=== PATIENT | female | born 1965 | race Two or more races ===

== ENCOUNTER 2024-09-01 15:46 | Emergency (ER) | payer OTHER ==
[~2024-09-01] VITALS: Ht 149.9 cm; Wt 68.0 kg
[~2024-09-01 15:46] MED LIST: ANAPROX275 MG
[2024-09-01] MEDS ORDERED: METHYLPREDNISOLONE SOD SUCC 125 MG VIAL IM STA (16:28)
[2024-09-01] MEDS ORDERED: DIPHENHYDRAMINE HCL 50 MG CAPSULE PO STA (16:28)
== END 2024-09-01 16:50 | disposition home or self-care (01) ==
LOC: ER 15:47
DX: L50.8 Other urticaria (principal)

== ENCOUNTER 2024-12-21 15:21 | Emergency (ER) | payer OTHER ==
[~2024-12-21] VITALS: Ht 149.9 cm; Wt 67.1 kg
[2024-12-21] MEDS ORDERED: 0.9 % SODIUM CHLORIDE 1,000 ML IV SCH (16:30)
[2024-12-21] MEDS ORDERED: KETOROLAC TROMETHAMINE 30 MG VIAL IV ONE (16:30)
[2024-12-21] MEDS ORDERED: KETOROLAC TROMETHAMINE 30 MG VIAL ONE ×2 (16:38→18:04)
[2024-12-21 18:04] LABS: PH,URINE 5.5 (5.0-8.0); URINE APPEARANCE Clear; URINE BILIRRUBIN Negative (NEGATIVE); URINE BLOOD Negative; URINE COLOR Yellow; URINE GLUCOSE Negative (NEGATIVE); URINE KETONE Negative (NEGATIVE); URINE LEUKOCYTE Trace; URINE NITRATE Negative; URINE PROTEIN Negative (NEGATIVE); URINE UROBILINOGEN 0.2 E.U./dl
[2024-12-21 18:05] LABS: URINE BACTERIA 504.1 uL (0.0-1933); URINE CAST 0.14 uL (0.0-1.40); URINE EPITHELIAL CELLS 17.2 uL (0.0-38.8); URINE RBC 1.7 uL (0.0-20.8); URINE WBC 36.8 uL (0.0-23.2)
[2024-12-21 18:28] LABS: HEMATOCRIT 42.5 % (36.0-45.00); HEMOGLOBIN 14.6 g/dL (12.0-15.00); MEAN CELL VOLUME 91.9 fL (80.00-100.00); MEAN CORPUSCULAR HEMOGLOBIN 31.7 pg (27.00-32.0); MEAN CORPUSCULAR HGB CONC 34.4 g/dl (32.0-36.0); PLATELET COUNT 266 K/uL (150-450); RED BLOOD COUNT 4.62 M/uL (4.00-6.00)
[2024-12-21 19:04] LABS: ALBUMIN 4.2 gm/dL (3.4-5.0); BILIRUBIN TOTAL 0.68 mg/dL (0.3-1.2); CALCIUM 9.6 mg/dL (8.5-10.1); CREATININE SERUM 0.75 mg/dL (0.55-1.02); GFR 79.65; GLOBULINA 4.3 G/DL (2.4-3.5); POTASSIUM 3.51 mEq/L (3.5-5.1); TOTAL PROTEIN 8.5 gm/dL (6.4-8.2)
[2024-12-21] MEDS ORDERED: DICLOFENAC SODI75 MG PO (19:37)
[2024-12-21] MEDS ORDERED: NORFLEX100MG PO (19:38)
== END 2024-12-21 20:25 | disposition home or self-care (01) ==
LOC: ER 15:23
PROVIDERS: General Practice
DX: R10.32 Left lower quadrant pain (principal); K59.01 Slow transit constipation

== ENCOUNTER 2025-02-19 12:30 | Inpatient (IN) | payer OTHER ==
[~2025-02-19] VITALS: Ht 30.5 cm; Wt 64.9 kg
[~2025-02-19 12:30] MED LIST changes: +DICLOFENAC SODI75 MG PO; +NORFLEX100MG PO
[2025-02-27] MEDS ORDERED: BUPIVACAINE HCL/MPF 0.5% 30ML VIAL ONE (08:17)
[2025-02-27] MEDS ORDERED: LIDOCAINE HCL 1%/EPINEPHRINE 20ML VIAL IJ ONE (08:18)
[2025-02-27] MEDS ORDERED: CEFTRIAXONE SODIUM 2,000 MG VIAL ONE (08:18)
[2025-02-27] MEDS ORDERED: METRONIDAZOLE/SODIUM CHLORIDE 500 MG/100 ML PIGGYBACK IV ONE (08:18)
[2025-02-27] MEDS ORDERED: MORPHINE SULFATE 4 MG/ML CARTRIDGE IV PRN (12:00)
[2025-02-27] MEDS ORDERED: OxyCODONE HCL 5 MG TABLET (ROXICODONE) PO PRN (12:00)
[2025-02-27] MEDS ORDERED: RINGERS SOLUTION,LACTATED 1,000 ML IV SCH (12:00)
[2025-02-27] MEDS ORDERED: ONDANSETRON HCL 2 MG/ML VIAL IV PRN (12:00)
[2025-02-27] MEDS ORDERED: HYOSCYAMINE SULFATE 0.125 MG TAB.SUBL SL SCH (13:00)
[2025-02-27] MEDS ORDERED: SIMETHICONE 125 MG CAPSULE PO SCH (13:00)
[2025-02-27] MEDS ORDERED: ACETAMINOPHEN 500 MG GEL..CAP PO SCH (14:00)
[2025-02-27 14:39] VITALS: BP 128/76; O2SAT 96
[2025-02-27 15:44] LABS: HEMATOCRIT 38.2 % (36.0-45.00); HEMOGLOBIN 12.7 g/dL (12.0-15.00); MEAN CELL VOLUME 91.2 fL (80.00-100.00); MEAN CORPUSCULAR HEMOGLOBIN 30.4 pg (27.00-32.0); MEAN CORPUSCULAR HGB CONC 33.4 g/dl (32.0-36.0); PLATELET COUNT 218 K/uL (150-450); RED BLOOD COUNT 4.19 M/uL (4.00-6.00); RED CELL DISTRIBUTION WIDTH 14.3 % (11.5-14.5)
[2025-02-27 16:00] VITALS: BP 129/76; O2SAT 98
[2025-02-27] MEDS ORDERED: POLYETHYLENE GLYCOL 3350 17 GM BLIST.PACK PO SCH (17:00)
[2025-02-27] MEDS ORDERED: CELECOXIB 200 MG CAPSULE PO SCH (17:00)
[2025-02-27] MEDS ORDERED: GABAPENTIN 300 MG CAPSULE PO SCH (17:00)
[2025-02-27] MEDS ORDERED: METOCLOPRAMIDE HCL 5 MG/ML VIAL IV SCH (17:00)
[2025-02-27] MEDS ORDERED: FAMOTIDINE/PF 20 MG/2 ML VIAL IV PUSH SCH (21:00)
[2025-02-28 01:46] VITALS: BP 114/72; O2SAT 99
[2025-02-28 06:04] LABS: ALBUMIN 2.9 gm/dL (3.4-5.0); CREATININE SERUM 0.57 mg/dL (0.55-1.02); GFR 109.32; MAGNESIUM 1.5 mg/dL (1.8-2.4); PHOSPHOROUS 3.7 mg/dL (2.5-4.9); POTASSIUM 3.85 mEq/L (3.5-5.1)
[2025-02-28 06:22] LABS: MEAN CELL VOLUME 92.3 fL (80.00-100.00); MEAN CORPUSCULAR HEMOGLOBIN 31.7 pg (27.00-32.0); MEAN CORPUSCULAR HGB CONC 34.3 g/dl (32.0-36.0); PLATELET COUNT 200 K/uL (150-450); RED BLOOD COUNT 3.79 M/uL (4.00-6.00); RED CELL DISTRIBUTION WIDTH 13.8 % (11.5-14.5)
[2025-02-28 08:00] VITALS: BP 112/70; O2SAT 95
[2025-02-28] MEDS ORDERED: LACTULOSE 20 G/30 ML BLIST.PACK PO SCH (09:00)
[2025-02-28] MEDS ORDERED: LACTOBACILLUS ACIDOPHILUS 1 CAP CAP PO SCH (09:00)
[2025-02-28] MEDS ORDERED: MAGNESIUM SULFATE IN WATER 50 ML IV NR (14:00)
[2025-02-28] MEDS ORDERED: ENOXAPARIN SODIUM 40 MG/0.4 ML SYRINGE SUBCUTANEO SCH (17:00)
[2025-02-28 18:02] VITALS: BP 132/83; O2SAT 95
[2025-03-01] VITALS: BP 123/81; O2SAT 95
[2025-03-01 06:40] LABS: HEMATOCRIT 32.7 % (36.0-45.00); HEMOGLOBIN 11.2 g/dL (12.0-15.00); MEAN CELL VOLUME 91.6 fL (80.00-100.00); MEAN CORPUSCULAR HEMOGLOBIN 31.3 pg (27.00-32.0); MEAN CORPUSCULAR HGB CONC 34.2 g/dl (32.0-36.0); PLATELET COUNT 180 K/uL (150-450); RED BLOOD COUNT 3.56 M/uL (4.00-6.00)
[2025-03-01 07:13] LABS: CALCIUM 7.9 mg/dL (8.5-10.1); CREATININE SERUM 0.5 mg/dL (0.55-1.02); GFR 127.17; MAGNESIUM 1.9 mg/dL (1.8-2.4); PHOSPHOROUS 2.1 mg/dL (2.5-4.9); POTASSIUM 3.45 mEq/L (3.5-5.1)
[2025-03-01] MEDS ORDERED: POTASSIUM PHOS,M-BASIC-D-BASIC 3 MM/ML VIAL IV NR (08:45)
[2025-03-01] MEDS ORDERED: POTASSIUM CHLORIDE 20MEQ/100ML H2O PB IV NR (08:45)
[2025-03-01] MEDS ORDERED: ENOXAPARIN SODIUM 40 MG/0.4 ML SYRINGE SUBCUTANEO SCH (09:00)
[2025-03-01 09:08] VITALS: BP 127/82; O2SAT 97
[2025-03-01] MEDS ORDERED: NAPH,MB-DB/K PH,MBDB 1 PKT PACKET PO NR (10:15)
[2025-03-01] MEDS ORDERED: POTASSIUM CHLORIDE 8 MEQ TABLET PO NR (10:15)
== END 2025-03-01 11:39 | disposition home or self-care (01) | DRG 330 ==
LOC: SURH 02-27 05:26 → O/R 02-27 05:26 → OB/GYN 02-27 12:30 → SURH 02-27 12:59 → OB/GYN 02-27 20:00 → SURH 03-01 11:39
PROVIDERS: Internal Medicine Geriatric Medicine; ADMIT Colon & Rectal Surgery; ATTEND Colon & Rectal Surgery
PROC: 0DTP4ZZ Resection of Rectum, Percutaneous Endoscopic Approach (ICD-10-PCS; 2025-02-27)
PROC: 07BB4ZZ Excision of Mesenteric Lymphatic, Percutaneous Endoscopic Approach (ICD-10-PCS; 2025-02-27)
PROC: 07BC4ZZ Excision of Pelvis Lymphatic, Percutaneous Endoscopic Approach (ICD-10-PCS; 2025-02-27)
PROC: 0WBH4ZZ Excision of Retroperitoneum, Percutaneous Endoscopic Approach (ICD-10-PCS; 2025-02-27)
PROC: 0DJD8ZZ Inspection of Lower Intestinal Tract, Via Natural or Artificial Opening Endoscopic (ICD-10-PCS; 2025-02-27)
PROC: 0DB84ZZ Excision of Small Intestine, Percutaneous Endoscopic Approach (ICD-10-PCS; principal; 2025-02-27 20:00)
DX: C20 Malignant neoplasm of rectum (principal); K92.1 Melena; K59.09 Other constipation; R59.0 Localized enlarged lymph nodes

== ENCOUNTER 2025-03-09 20:14 | Inpatient (IN) | payer OTHER ==
[~2025-03-09] VITALS: Ht 149.9 cm; Wt 0.5 kg
--- NOTE | 2025-03-09 20:47 | NUR ---
SE RECIBE PTE ALERTA, ORIENTADA X3. PTE REFIERE DOLOR ABDOMINAL. PTE REFIERE OPERADA POR EL 7 DE MASSEY. PTE REFIERE NAUSEAS. SE MIDEN S/V Y SE UBICA.
[2025-03-09] MEDS ORDERED: 0.9 % SODIUM CHLORIDE 1,000 ML IV ONE (21:15)
[2025-03-09] MEDS ORDERED: MORPHINE SULFATE 4 MG/ML VIAL IV ONE (21:15)
[2025-03-09] MEDS ORDERED: METHYLPREDNISOLONE SOD SUCC 40 MG VIAL IV ONE (21:15)
[2025-03-09] MEDS ORDERED: FAMOtidine 10 MG/ML (4ML VIAL) IV ONE (21:15)
[2025-03-09] MEDS ORDERED: DIPHENHYDRAMINE HCL 50 MG/ML VIAL 1ML IV ONE (21:15)
[2025-03-09 21:30] LABS: BASO % 0.4 % (0.1-1.2); EOS # 0.37 (0.04-0.54); EOS % 3.6 % (0.7-7.0); HEMATOCRIT 42.7 % (34.1-44.9); HEMOGLOBIN 14.3 g/dL (11.2-15.7); LYMPH % 17.6 % (19.3-53.1); MEAN CORPUSCULAR HEMOGLOBIN 29.8 pg (25.6-32.2); MONO # 0.61 (0.24-0.82); NEUT % 72.2 % (34.0-71.1); PLATELET COUNT 479 K/uL (163-369); RED CELL DISTRIBUTION WIDTH 13.3 % (11.6-14.4)
--- NOTE | 2025-03-09 21:30 | NUR ---
SE ORIENTA PTE SOBRE TX MEDICO Y REFIERE ACEPTAR. SE EJECUTAN ORDENES MEDICAS A LEONARD TOTALIDAD.
[2025-03-09 21:56] LABS: ALBUMIN 3.9 gm/dL (3.4-5.0); BILIRUBIN TOTAL 0.43 mg/dL (0.3-1.2); CALCIUM 9.8 mg/dL (8.5-10.1); CREATININE SERUM 0.74 mg/dL (0.55-1.02); GFR 80.89; POTASSIUM 4.6 mEq/L (3.5-5.1); TOTAL PROTEIN 8.9 gm/dL (6.4-8.2)
[2025-03-09 22:12] LABS: INR 1.1; PARTIAL THROMBOPLASTIN TIME 27.6 SECONDS (22.0-34.0); PROTHROMBIN TIME 11.9 SECONDS (9.0-11.5)
[2025-03-10 00:04] LABS: URINE APPEARANCE Clear; URINE BILIRRUBIN Negative (NEGATIVE); URINE BLOOD Negative; URINE COLOR Yellow; URINE GLUCOSE Negative (NEGATIVE); URINE KETONE Negative (NEGATIVE); URINE LEUKOCYTE Small; URINE NITRATE Negative; URINE PROTEIN Negative (NEGATIVE); URINE UROBILINOGEN 0.2 E.U./dl
[2025-03-10 00:08] LABS: URINE BACTERIA 107.6 uL (0.0-1933); URINE EPITHELIAL CELLS 9.6 uL (0.0-38.8); URINE RBC 2.9 uL (0.0-20.8); URINE WBC 42.2 uL (0.0-23.2)
[2025-03-10] MEDS ORDERED: TRAMADOL HCL 50 MG TABLET PO STA (03:33)
[2025-03-10] MEDS ORDERED: PIPERACILLIN/TAZOBACTAM SODIUM 3.375 GM VIAL IV STA (03:43)
[2025-03-10] MEDS ORDERED: FAMOtidine 10 MG/ML (4ML VIAL) IV PUSH STA (05:22)
[2025-03-10] MEDS ORDERED: ONDANSETRON HCL 2 MG/ML VIAL IV STA (05:22)
--- NOTE | 2025-03-10 08:20 | NUR ---
SE LE INSERTA TUBO NASOGASTRICO A PTE POR FOSA NASAL DERECHA. SE MANTIENE BAJO OBSERVACION Y EN ESPERA DE ADMICION.
[2025-03-10] MEDS ORDERED: MORPHINE SULFATE 4 MG/ML VIAL IV PRN (09:00)
[2025-03-10] MEDS ORDERED: ACETAMINOPHEN 500 MG GEL..CAP PO PRN (09:00)
[2025-03-10] MEDS ORDERED: FAMOTIDINE/PF 20 MG/2 ML VIAL IV SCH (09:00)
[2025-03-10] MEDS ORDERED: ENOXAPARIN SODIUM 40 MG/0.4 ML SYRINGE SUBCUTANEO SCH (09:00)
[2025-03-10] MEDS ORDERED: 0.9 % SODIUM CHLORIDE 1,000 ML IV SCH (09:00)
[2025-03-10] MEDS ORDERED: DEXTROSE 50 % IN WATER 0.5 G/ML VIAL IV PRN (09:00)
[2025-03-10] MEDS ORDERED: INSULIN LISPRO 1,000 UNIT/10 ML UNITS SUBCUTANEO PRN (09:00)
[2025-03-10] MEDS ORDERED: ONDANSETRON HCL 2 MG/ML VIAL IV PRN (09:45)
[2025-03-10 10:03] VITALS: BP 120/82; O2SAT 95
[2025-03-10 10:27] LABS: ALBUMIN 3.8 gm/dL (3.4-5.0); BILIRUBIN TOTAL 0.45 mg/dL (0.3-1.2); CALCIUM 9.2 mg/dL (8.5-10.1); CREATININE SERUM 0.86 mg/dL (0.55-1.02); GFR 68.01; GLOBULINA 4.8 G/DL (2.4-3.5); POTASSIUM 3.96 mEq/L (3.5-5.1); TOTAL PROTEIN 8.6 gm/dL (6.4-8.2)
[2025-03-10 16:00] VITALS: BP 102/68; O2SAT 98
[2025-03-10] MEDS ORDERED: AA 4.25%/CAL/LYTES/DEXT 5% 1,000 ML PERIFERAL SCH (17:00)
[2025-03-10] MEDS ORDERED: ACETAMINOPHEN 160MG/5 ML BLIST.PACK PO PRN (20:00)
[2025-03-11 01:55] VITALS: BP 129/79; O2SAT 96
[2025-03-11] MEDS ORDERED: ACETAMINOPHEN 160 MG/5 ML ML PO PRN (07:00)
[2025-03-11 07:09] LABS: BASO % 0.5 % (0.1-1.2); EOS # 0.15 (0.04-0.54); EOS % 1.3 % (0.7-7.0); HEMATOCRIT 38.2 % (34.1-44.9); HEMOGLOBIN 12.6 g/dL (11.2-15.7); LYMPH # 3.23 (1.18-3.74); LYMPH % 28.5 % (19.3-53.1); MEAN CORPUSCULAR HEMOGLOBIN 30.2 pg (25.6-32.2); MONO # 0.77 (0.24-0.82); MONO % 6.8 % (4.7-12.5); NEUT # 7.11 (1.56-6.13); NEUT % 62.6 % (34.0-71.1); PLATELET COUNT 424 K/uL (163-369); RED BLOOD COUNT 4.17 M/uL (3.93-5.22); RED CELL DISTRIBUTION WIDTH 13.6 % (11.6-14.4)
[2025-03-11 07:47] LABS: MAGNESIUM 2.1 mg/dL (1.8-2.4); PHOSPHOROUS 3.3 mg/dL (2.5-4.9)
[2025-03-11 08:00] VITALS: BP 125/80; O2SAT 95
[2025-03-12 00:14] VITALS: BP 122/78; O2SAT 97
[2025-03-12 08:00] VITALS: BP 113/77; O2SAT 97
[2025-03-12 08:48] LABS: CALCIUM 8.5 mg/dL (8.5-10.1); CREATININE SERUM 0.52 mg/dL (0.55-1.02); GFR 121.54; MAGNESIUM 2.2 mg/dL (1.8-2.4); PHOSPHOROUS 3.7 mg/dL (2.5-4.9); POTASSIUM 4.49 mEq/L (3.5-5.1)
[2025-03-12 08:49] LABS: C-REACTIVE PROTEIN 0.7 MG/DL (0.00-0.29)
[2025-03-12 08:57] LABS: BASO % 0.7 % (0.1-1.2); EOS % 2.1 % (0.7-7.0); HEMATOCRIT 39.6 % (34.1-44.9); HEMOGLOBIN 13.2 g/dL (11.2-15.7); LYMPH # 2.07 (1.18-3.74); LYMPH % 23.4 % (19.3-53.1); MEAN CORPUSCULAR HEMOGLOBIN 30.2 pg (25.6-32.2); MONO % 6.8 % (4.7-12.5); NEUT # 5.89 (1.56-6.13); NEUT % 66.7 % (34.0-71.1); PLATELET COUNT 330 K/uL (163-369); RED BLOOD COUNT 4.37 M/uL (3.93-5.22); RED CELL DISTRIBUTION WIDTH 13.4 % (11.6-14.4)
[2025-03-12 08:58] LABS: EOS # 0.19 (0.04-0.54)
[2025-03-12 16:00] VITALS: BP 114/80; O2SAT 97
[2025-03-13 01:13] VITALS: BP 122/82; O2SAT 100
[2025-03-13 08:53] VITALS: BP 117/81; O2SAT 98
[2025-03-13] MEDS ORDERED: MORPHINE SULFATE 4 MG/ML CARTRIDGE IV PRN (09:30)
[2025-03-13 16:00] VITALS: BP 113/76; O2SAT 97
[2025-03-14 01:31] VITALS: BP 110/75; O2SAT 98
[2025-03-14] MEDS ORDERED: SUCRALFATE 1 G TABLET PO SCH (05:43)
[2025-03-14 08:00] VITALS: BP 119/81; O2SAT 98
[2025-03-14 08:17] LABS: BASO % 0.9 % (0.1-1.2); HEMATOCRIT 39.1 % (34.1-44.9); HEMOGLOBIN 12.8 g/dL (11.2-15.7); LYMPH # 2.27 (1.18-3.74); LYMPH % 22.6 % (19.3-53.1); MEAN CORPUSCULAR HEMOGLOBIN 30.3 pg (25.6-32.2); MONO # 0.73 (0.24-0.82); MONO % 7.3 % (4.7-12.5); NEUT % 55.8 % (34.0-71.1); PLATELET COUNT 317 K/uL (163-369); RED BLOOD COUNT 4.23 M/uL (3.93-5.22); RED CELL DISTRIBUTION WIDTH 13.4 % (11.6-14.4)
[2025-03-14] MEDS ORDERED: METHYLPREDNISOLONE SOD SUCC 40 MG VIAL IV SCH (08:30)
[2025-03-14] MEDS ORDERED: DIPHENHYDRAMINE HCL 50 MG/ML VIAL 1ML IV SCH (08:30)
[2025-03-14] MEDS ORDERED: METOCLOPRAMIDE HCL 5 MG/ML VIAL IV SCH (09:20)
[2025-03-14 09:25] LABS: CALCIUM 8.5 mg/dL (8.5-10.1); CREATININE SERUM 0.5 mg/dL (0.55-1.02); GFR 127.17; MAGNESIUM 2.2 mg/dL (1.8-2.4); PHOSPHOROUS 3.6 mg/dL (2.5-4.9); POTASSIUM 4.54 mEq/L (3.5-5.1)
[2025-03-14 09:47] LABS: C-REACTIVE PROTEIN 0.67 MG/DL (0.00-0.29)
[2025-03-14 16:00] VITALS: BP 109/72; O2SAT 96
[2025-03-15] VITALS: BP 116/78; O2SAT 97
[2025-03-15 08:00] VITALS: BP 112/77; O2SAT 97
[2025-03-15] MEDS ORDERED: METOCLOPRAMIDE HCL 5 MG/ML VIAL IV SCH (13:00)
[2025-03-15] MEDS ORDERED: DIPHENHYDRAMINE HCL 50 MG/ML VIAL 1ML IV SCH (13:00)
[2025-03-15 16:29] VITALS: BP 105/73; O2SAT 97
[2025-03-16 00:50] VITALS: BP 102/69; O2SAT 95
[2025-03-16 08:22] VITALS: BP 99/64; O2SAT 98
[2025-03-16] MEDS ORDERED: POLYETHYLENE GLYCOL 3350 17 GM BLIST.PACK PO STA (11:16)
[2025-03-16 15:00] VITALS: BP 122/86; O2SAT 98
[2025-03-16] MEDS ORDERED: PANTOPRAZOLE SODIUM 80 MG in 0.9 % SODIUM CHLORIDE 100 ML IV SCH (18:00)
[2025-03-16] MEDS ORDERED: METOCLOPRAMIDE HCL 5 MG/ML VIAL IV SCH (21:00)
[2025-03-16] MEDS ORDERED: POLYETHYLENE GLYCOL 3350 17 GM BLIST.PACK PO SCH (21:00)
[2025-03-17 00:35] VITALS: BP 117/84; O2SAT 98
[2025-03-17 08:01] VITALS: BP 109/77; O2SAT 99
[2025-03-17 16:17] VITALS: BP 108/76; O2SAT 98
[2025-03-18 01:05] VITALS: BP 108/78; O2SAT 96
[2025-03-18 08:00] LABS: INR 1.06; PROTHROMBIN TIME 11.5 SECONDS (9.0-11.5)
[2025-03-18 08:15] LABS: CALCIUM 8.2 mg/dL (8.5-10.1); CREATININE SERUM 0.56 mg/dL (0.55-1.02); GFR 111.58; PHOSPHOROUS 3.7 mg/dL (2.5-4.9); POTASSIUM 4.44 mEq/L (3.5-5.1)
[2025-03-18 09:00] VITALS: BP 102/97; O2SAT 99
[2025-03-18 09:52] LABS: UREA CLEARANCE 27.3 ML/MIN
[2025-03-18 09:53] LABS: ALBUMIN 3.3 gm/dL (3.4-5.0); BILIRUBIN TOTAL 0.97 mg/dL (0.3-1.2); BILIRUBIN,CONJUGATED 0.31 mg/dL (0.0-0.2); BILIRUBIN,UNCONJUGATED 0.66 mg/dL (0.0-0.6); CALCIUM 8.2 mg/dL (8.5-10.1); CREATININE SERUM 0.55 mg/dL (0.55-1.02); GFR 113.92; GLOBULINA 3.2 G/DL (2.4-3.5); POTASSIUM 4.45 mEq/L (3.5-5.1); TOTAL PROTEIN 6.5 gm/dL (6.4-8.2)
[2025-03-18 13:09] LABS: BASO % 1.3 % (0.1-1.2); EOS # 0.84 (0.04-0.54); EOS % 9.7 % (0.7-7.0); HEMATOCRIT 37.6 % (34.1-44.9); HEMOGLOBIN 12.7 g/dL (11.2-15.7); LYMPH # 2.16 (1.18-3.74); LYMPH % 24.9 % (19.3-53.1); MEAN CORPUSCULAR HEMOGLOBIN 30.8 pg (25.6-32.2); MONO # 0.93 (0.24-0.82); MONO % 10.7 % (4.7-12.5); NEUT # 4.58 (1.56-6.13); NEUT % 52.8 % (34.0-71.1); PLATELET COUNT 260 K/uL (163-369); RED BLOOD COUNT 4.12 M/uL (3.93-5.22); RED CELL DISTRIBUTION WIDTH 13.2 % (11.6-14.4)
[2025-03-18 16:00] VITALS: BP 102/71; O2SAT 98
[2025-03-19 00:32] VITALS: BP 103/71; O2SAT 98
[2025-03-19 08:00] VITALS: BP 101/67; O2SAT 99
[2025-03-19 18:10] VITALS: BP 106/73; O2SAT 99
[2025-03-20 00:54] VITALS: BP 105/73; O2SAT 100
[2025-03-20 08:00] VITALS: BP 100/64; BP 102/68; O2SAT 99
[2025-03-20 09:47] LABS: BILIRUBIN TOTAL 0.49 mg/dL (0.3-1.2); BILIRUBIN,CONJUGATED 0.16 mg/dL (0.0-0.2); BILIRUBIN,UNCONJUGATED 0.33 mg/dL (0.0-0.6); TOTAL PROTEIN 5.8 gm/dL (6.4-8.2)
[2025-03-20] MEDS ORDERED: fentaNYL CITRATE 50 MCG/ML AMPUL IV PUSH ONE (11:45)
[2025-03-20] MEDS ORDERED: DIPHENHYDRAMINE HCL 50 MG/ML VIAL 1ML IV ONE (11:45)
[2025-03-20] MEDS ORDERED: MIDAZOLAM HCL 2 MG/2 ML VIAL IV ONE (11:45)
[2025-03-20 17:37] VITALS: BP 107/72; O2SAT 98
[2025-03-20] MEDS ORDERED: PANTOPRAZOLE SODIUM 40 MG/VIAL VIAL IV SCH (21:00)
[2025-03-21 01:03] VITALS: BP 131/82; O2SAT 99
[2025-03-21 08:00] VITALS: BP 107/70; O2SAT 99
[2025-03-21] MEDS ORDERED: PEPCID AC20 MG PO (14:41)
[2025-03-21] MEDS ORDERED: PROTONIX40 MG PO (14:41)
[2025-03-21] MEDS ORDERED: METOCLOPRAMIDE H5 MG PO (14:41)
[2025-03-21 16:30] VITALS: BP 123/84; O2SAT 100
== END 2025-03-21 18:10 | disposition home or self-care (01) | DRG 392 ==
LOC: ER 20:33 → SURH 03-10 09:56
PROVIDERS: General Practice; Internal Medicine; Internal Medicine Geriatric Medicine; ADMIT Colon & Rectal Surgery; ATTEND Colon & Rectal Surgery
PROC: BW21YZZ Computerized Tomography (CT Scan) of Abdomen and Pelvis using Other Contrast (ICD-10-PCS; 2025-03-09)
PROC: 02HV33Z Insertion of Infusion Device into Superior Vena Cava, Percutaneous Approach (ICD-10-PCS; 2025-03-11)
PROC: 0DB78ZX Excision of Stomach, Pylorus, Via Natural or Artificial Opening Endoscopic, Diagnostic (ICD-10-PCS; principal; 2025-03-20)
DX: K29.00 Acute gastritis without bleeding (principal); F43.21 Adjustment disorder with depressed mood; K44.9 Diaphragmatic hernia without obstruction or gangrene; K21.9 Gastro-esophageal reflux disease without esophagitis; K55.1 Chronic vascular disorders of intestine